=== PATIENT | male | born 1960 ===

== ENCOUNTER 2025-02-25 17:31 | Emergency (ER) | payer OTHER ==
[~2025-02-25] VITALS: Ht 200.7 cm; Wt 90.0 kg
[2025-02-25 18:56] VITALS: BP 140/96
== END 2025-02-25 18:55 | disposition home or self-care (01) ==
LOC: ED 17:31
DX: S60.511A Abrasion of right hand, initial encounter (principal); J44.9 Chronic obstructive pulmonary disease, unspecified; W18.09XA Striking against other object with subsequent fall, initial encounter
CPT/HCPCS: 73130; 99283